=== PATIENT | male | born 1945 | race Caucasian/White ===

== ENCOUNTER → 2016-05-22 | Outpatient (CLI) | payer MEDICARE, OTHER ==
[2016-05-22 08:59] LABS: Basophils # (auto) 0 uL; Basophils % (auto) 0.4 % (0.0-2.0); Eosinophils # (auto) 0.1 uL; Eosinophils % (auto) 1.6 % (0.0-7.0); Hematocrit 46.7 % (41.0-53.0); Hemoglobin 15.4 g/dL (13.5-17.5); Lymphocytes # (auto) 2.1 uL; Lymphocytes % (auto) 27.8 % (10.0-50.0); Mean Corpuscular Hemoglobin 28.4 pg (28.0-32.0); Mean Corpuscular Hgb Conc. 32.9 g/dL (32.0-36.0); Mean Corpuscular Volume 86.2 fL (80.0-100.0); Mean Platelet Volume 8.9 fL (7.4-10.4); Monocytes # (auto) 0.6 uL; Monocytes % (auto) 8.2 % (0.0-12.0); Neutrophils # (auto) 4.6 uL; Platelet Count (auto) 237 10^3/uL (140-450); Red Cell Distribution Width 16.1 % (11.6-16.0); White Blood Cell 7.4 10^3/uL (4.4-10.8)
[2016-05-22 09:31] LABS: Urine Bilirubin Negative (Negative); Urine Blood Negative /uL (Negative); Urine Color Yellow (Yellow); Urine Ketone TRACE (Negative); Urine Nitrite Negative (Negative); Urine RBC <1 /hpf (0 - 3); Urine Urobilinogen Normal (Negative)
[2016-05-22 09:36] LABS: Urine Glucose 4+ mg/dL (Normal)
[2016-05-22 09:41] LABS: BUN/Creatinine Ratio 20.9; Bilirubin, Total 1.1 mg/dL (0.2-1.0); Calcium 8.8 mg/dL (8.5-10.1); Potassium 4.3 mmol/L (3.5-5.1); Total Protein 7.9 g/dL (6.4-8.2)
== END | disposition home or self-care (01) ==
LOC: LAB 07:12
PROVIDERS: ATTEND Internal Medicine
DX: E11.9 Type 2 diabetes mellitus without complications (principal); I10 Essential (primary) hypertension; E03.9 Hypothyroidism, unspecified
CPT/HCPCS: 36415; 80053; 80061; 81001; 82306; 83036; 84153; 84443; 85025

== ENCOUNTER → 2016-09-13 | Outpatient (CLI) | payer MEDICARE, OTHER ==
[2016-09-13 08:34] LABS: Urine Bilirubin Negative (Negative); Urine Blood Negative /uL (Negative); Urine Color Yellow (Yellow); Urine Ketone Negative (Negative); Urine Nitrite Negative (Negative); Urine RBC 1 /hpf (0 - 3); Urine Squamous Epithelial Cell FEW /hpf (<5); Urine Urobilinogen Normal (Negative)
[2016-09-13 08:35] LABS: Urine Glucose 4+ mg/dL (Normal)
[2016-09-13 09:03] LABS: Albumin 3.5 g/dL (3.4-5.0); BUN/Creatinine Ratio 18.1; Calcium 8.5 mg/dL (8.5-10.1); Potassium 4.2 mmol/L (3.5-5.1); Total Protein 7.3 g/dL (6.4-8.2)
== END | disposition home or self-care (01) ==
LOC: LAB 06:38
PROVIDERS: ATTEND Internal Medicine
DX: Z00.00 Encounter for general adult medical examination without abnormal findings (principal); I10 Essential (primary) hypertension; E78.2 Mixed hyperlipidemia; E11.9 Type 2 diabetes mellitus without complications
CPT/HCPCS: 36415; 80053; 80061; 81001; 83036; 84443

== ENCOUNTER → 2016-12-04 | Outpatient (CLI) | payer MEDICARE, OTHER ==
[2016-12-04 10:40] LABS: Urine Bilirubin Negative (Negative); Urine Blood Negative /uL (Negative); Urine Color Yellow (Yellow); Urine Glucose 4+ mg/dL (Normal); Urine Hyaline Cast FEW /lpf (0 - 2); Urine Ketone Negative (Negative); Urine Nitrite Negative (Negative); Urine RBC <1 /hpf (0 - 3); Urine Squamous Epithelial Cell FEW /hpf (<5); Urine Urobilinogen Normal (Negative)
[2016-12-04 10:46] LABS: Albumin 3.9 g/dL (3.4-5.0); BUN/Creatinine Ratio 17.5; Bilirubin, Total 1.4 mg/dL (0.2-1.0); Calcium 8.8 mg/dL (8.5-10.1); Potassium 4.2 mmol/L (3.5-5.1); Total Protein 7.8 g/dL (6.4-8.2)
== END | disposition home or self-care (01) ==
LOC: LAB 07:45
PROVIDERS: ATTEND Internal Medicine
DX: I10 Essential (primary) hypertension (principal); E78.2 Mixed hyperlipidemia; E03.9 Hypothyroidism, unspecified; N39.0 Urinary tract infection, site not specified
CPT/HCPCS: 36415; 80053; 80061; 81001; 82043; 84443

== ENCOUNTER 2017-02-27 12:55 | Inpatient (IN) | payer MEDICARE, OTHER ==
[~2017-02-27] VITALS: Ht 180.3 cm; Wt 123.7 kg
[2017-02-27 14:19] LABS: Basophils # (auto) 0 uL; Basophils % (auto) 0.5 % (0.0-2.0); Eosinophils # (auto) 0.1 uL; Hematocrit 47.4 % (41.0-53.0); Hemoglobin 15.6 g/dL (13.5-17.5); Lymphocytes # (auto) 1.9 uL; Lymphocytes % (auto) 20.2 % (10.0-50.0); Mean Corpuscular Hemoglobin 29.7 pg (28.0-32.0); Mean Corpuscular Hgb Conc. 32.9 g/dL (32.0-36.0); Mean Corpuscular Volume 90.2 fL (80.0-100.0); Monocytes # (auto) 0.7 uL; Monocytes % (auto) 7.6 % (0.0-12.0); Neutrophils # (auto) 6.7 uL; Neutrophils % (auto) 70.7 % (37.0-80.0); Nucleated Red Blood Cells % 0.2 %; Platelet Count (auto) 223 10^3/uL (140-450); Red Blood Cells 5.26 10^6/uL (4.5-5.90); Red Cell Distribution Width 16.5 % (11.8-14.3); White Blood Cell 9.4 10^3/uL (4.4-10.8)
[2017-02-27 14:35] LABS: INR 0.97 (0.9-1.15); Partial Thromboplastin Time 28.2 sec (22.64-33.71); Prothrombin Time 10.6 sec (9.37-12.3)
[2017-02-27 15:07] LABS: BUN/Creatinine Ratio 18.1; Calcium 9.2 mg/dL (8.5-10.1)
[2017-02-27 15:08] LABS: Albumin 3.8 g/dL (3.4-5.0); Total Protein 7.8 g/dL (6.4-8.2)
[2017-02-27] MEDS ORDERED: TEMAZEPAM 15 MG CAP PO PRN (21:00)
[2017-02-27] MEDS ORDERED: ACETAMINOPHEN 325 MG TAB PO PRN (21:00)
[2017-02-27] MEDS ORDERED: DEXTROSE (50%) 50ML SYRG IV PRN (21:00)
[2017-02-27] MEDS ORDERED: ONDANSETRON HCL 4 MG/2 ML VIAL IV PRN (21:00)
[2017-02-27] MEDS: SODIUM CHLORIDE 0.9% 1,000 ML IV SCH (23:58)
[2017-02-27] MEDS: FAMOTIDINE 20 MG TAB PO SCH (23:59)
[2017-02-27] MEDS: CLINDAMYCIN 600MG IV 50 ML IV SCH (23:59)
[2017-02-28] MEDS: ACCU-CHEK COMFORT CURVE STRIP VI SCH ×4 (00:21→18:21)
[2017-02-28] MEDS: CLINDAMYCIN 600MG IV 50 ML IV SCH ×3 (04:59→21:55)
[2017-02-28] MEDS: InsuLIN REG 1unit/0.01ml Soln (100units/ml) SC SCH ×4 (06:00→18:00)
[2017-02-28 06:29] VITALS: BP 122/49
[2017-02-28] MEDS ORDERED: LEVO125T7 PO (07:36)
[2017-02-28] MEDS ORDERED: PIO30T PO (07:36)
[2017-02-28] MEDS ORDERED: METF500T PO (07:36)
[2017-02-28 08:00] VITALS: BP 123/49
[2017-02-28] MEDS: SODIUM CHLORIDE 0.9% 1,000 ML IV SCH ×2 (09:24→21:58)
[2017-02-28] MEDS: FAMOTIDINE 20 MG TAB PO SCH ×2 (11:17→21:55)
[2017-02-28] MEDS ORDERED: PIOGLITAZONE HYDROCHLORIDE 30 MG TAB PO ONE (11:30)
[2017-02-28] MEDS ORDERED: LEVOFLOXACIN 500MG 100 ML IV ONE (11:45)
[2017-02-28] MEDS ORDERED: LEVOTHYROXINE SODIUM 25 MCG TAB PO ONE (11:45)
[2017-02-28] MEDS ORDERED: LEVOTHYROXINE SODIUM 100 MCG TAB PO ONE (11:45)
[2017-02-28 12:00] VITALS: BP 121/71
[2017-02-28 17:15] VITALS: BP 138/75
[2017-02-28 20:00] VITALS: BP 115/72
[2017-02-28 22:05] VITALS: BP 115/72
[2017-03-01] VITALS (7 sets, daily range): BP systolic 120–137; BP diastolic 71–77
[2017-03-01] MEDS: ACCU-CHEK COMFORT CURVE STRIP VI SCH ×4 (00:22→18:07)
[2017-03-01] MEDS: InsuLIN REG 1unit/0.01ml Soln (100units/ml) SC SCH ×4 (06:00→18:00)
[2017-03-01] MEDS: CLINDAMYCIN 600MG IV 50 ML IV SCH ×3 (06:15→22:04)
[2017-03-01 06:24] LABS: Basophils # (auto) 0 uL; Basophils % (auto) 0.5 % (0.0-2.0); Eosinophils # (auto) 0.2 uL; Eosinophils % (auto) 2.3 % (0.0-7.0); Hematocrit 40.4 % (41.0-53.0); Hemoglobin 13.5 g/dL (13.5-17.5); Lymphocytes # (auto) 2.2 uL; Lymphocytes % (auto) 33.5 % (10.0-50.0); Mean Corpuscular Hemoglobin 29.3 pg (28.0-32.0); Mean Corpuscular Hgb Conc. 33.4 g/dL (32.0-36.0); Mean Corpuscular Volume 87.6 fL (80.0-100.0); Monocytes # (auto) 0.6 uL; Monocytes % (auto) 9.1 % (0.0-12.0); Neutrophils # (auto) 3.5 uL; Neutrophils % (auto) 54.6 % (37.0-80.0); Platelet Count (auto) 180 10^3/uL (140-450); Red Blood Cells 4.62 10^6/uL (4.5-5.90); Red Cell Distribution Width 16.2 % (11.8-14.3); White Blood Cell 6.5 10^3/uL (4.4-10.8)
[2017-03-01 06:28] LABS: Albumin 3.2 g/dL (3.4-5.0); BUN/Creatinine Ratio 24.6; Bilirubin, Total 1.3 mg/dL (0.2-1.0); Calcium 8.7 mg/dL (8.5-10.1); Total Protein 6.6 g/dL (6.4-8.2)
[2017-03-01] MEDS: LEVOTHYROXINE SODIUM 100 MCG TAB PO SCH (06:38)
[2017-03-01] MEDS: FAMOTIDINE 20 MG TAB PO SCH ×2 (10:47→22:04)
[2017-03-01] MEDS: SODIUM CHLORIDE 0.9% 1,000 ML IV SCH (10:48)
[2017-03-01] MEDS: LEVOTHYROXINE SODIUM 25 MCG TAB PO SCH (10:48)
[2017-03-01] MEDS: LEVOFLOXACIN 500MG 100 ML IV SCH (10:49)
[2017-03-01] MEDS: PIOGLITAZONE HYDROCHLORIDE 30 MG TAB PO SCH ×2 (10:50→11:00)
[2017-03-01] MEDS ORDERED: MULTIPLE VITAMINS W/ MINERALS TAB PO ONE (15:00)
[2017-03-01] MEDS: ASCORBIC ACID 500 MG TAB PO SCH (22:04)
[2017-03-02] VITALS (7 sets, daily range): BP systolic 118–151; BP diastolic 67–100
[2017-03-02] MEDS: SODIUM CHLORIDE 0.9% 1,000 ML IV SCH ×2 (00:23→10:33)
[2017-03-02] MEDS: ACCU-CHEK COMFORT CURVE STRIP VI SCH ×4 (00:23→18:05)
[2017-03-02] MEDS: InsuLIN REG 1unit/0.01ml Soln (100units/ml) SC SCH ×4 (06:00→18:00)
[2017-03-02] MEDS: CLINDAMYCIN 600MG IV 50 ML IV SCH ×3 (06:10→21:41)
[2017-03-02] MEDS: LEVOTHYROXINE SODIUM 100 MCG TAB PO SCH (06:10)
[2017-03-02] MEDS: LEVOTHYROXINE SODIUM 25 MCG TAB PO SCH (06:11)
[2017-03-02 09:49] LABS: Urine Bacteria NONE SEEN /hpf (None Seen); Urine Blood 2+ /uL (Negative); Urine Hyaline Cast FEW /lpf (0 - 2); Urine Mucus FEW (None Seen); Urine Specific Gravity 1.012 (1.001-1.035); Urine WBC 1 /hpf (0 - 3)
[2017-03-02] MEDS: LEVOFLOXACIN 500MG 100 ML IV SCH (10:00)
[2017-03-02] MEDS: PIOGLITAZONE HYDROCHLORIDE 30 MG TAB PO SCH (10:00)
[2017-03-02] MEDS: MULTIPLE VITAMINS W/ MINERALS TAB PO SCH (10:00)
[2017-03-02] MEDS: ASCORBIC ACID 500 MG TAB PO SCH ×2 (10:00→21:41)
[2017-03-02] MEDS: FAMOTIDINE 20 MG TAB PO SCH ×2 (10:01→21:41)
[2017-03-02] MEDS ORDERED: ceFAZolin 1GM VL ONE (12:34)
[2017-03-02] MEDS ORDERED: BUPIVACAINE 0.75% INJ 10ML MPV SDV IJ ONE (12:35)
[2017-03-02] MEDS ORDERED: MIDAZOLAM HCL 1MG/1ML-2 ML VIAL ONE (12:46)
[2017-03-02] MEDS ORDERED: fentaNYL CITRATE 100 MCG/2 ML VL ONE (12:46)
[2017-03-02] MEDS ORDERED: PROPOFOL 10 MG/ML 20 ML IV ONE (12:48)
[2017-03-02] MEDS ORDERED: BACITRACIN TOP OINT 1 UD PKG TOP ONE (13:17)
[2017-03-02] MEDS ORDERED: NEOMYCIN-BACITRACIN-POLYM 15GM TOP OINT TOP ONE (13:17)
[2017-03-02] MEDS ORDERED: HYDROmorphone HCL 2 MG/ML VL IV PRN (13:30)
[2017-03-02] MEDS ORDERED: hydrALAZINE HCL 20 MG/ML VL IV PRN (13:30)
[2017-03-02] MEDS ORDERED: ePHEDrine SULFATE 50 MG/ML AMP IV PRN (13:30)
[2017-03-02] MEDS ORDERED: ONDANSETRON HCL 4 MG/2 ML VIAL IV ONE (13:30)
[2017-03-02] MEDS: HYDROcodone-ACET 5/325MG TAB PO PRN (21:41)
[2017-03-03] VITALS (7 sets, daily range): BP systolic 124–159; BP diastolic 60–85
[2017-03-03] MEDS: SODIUM CHLORIDE 0.9% 1,000 ML IV SCH ×2 (00:04→12:43)
[2017-03-03] MEDS: ACCU-CHEK COMFORT CURVE STRIP VI SCH ×4 (00:04→17:55)
[2017-03-03] MEDS: HYDROcodone-ACET 5/325MG TAB PO PRN ×4 (05:34→21:34)
[2017-03-03] MEDS: InsuLIN REG 1unit/0.01ml Soln (100units/ml) SC SCH ×4 (05:37→17:56)
[2017-03-03] MEDS: LEVOTHYROXINE SODIUM 25 MCG TAB PO SCH (06:25)
[2017-03-03] MEDS: CLINDAMYCIN 600MG IV 50 ML IV SCH ×3 (06:25→21:33)
[2017-03-03] MEDS: LEVOTHYROXINE SODIUM 100 MCG TAB PO SCH (06:25)
[2017-03-03] MEDS: FAMOTIDINE 20 MG TAB PO SCH ×2 (10:01→21:34)
[2017-03-03] MEDS: LEVOFLOXACIN 500MG 100 ML IV SCH (10:02)
[2017-03-03] MEDS: ASCORBIC ACID 500 MG TAB PO SCH ×2 (10:02→21:34)
[2017-03-03] MEDS: MULTIPLE VITAMINS W/ MINERALS TAB PO SCH (10:02)
[2017-03-03] MEDS: PIOGLITAZONE HYDROCHLORIDE 30 MG TAB PO SCH (10:18)
[2017-03-03] MEDS ORDERED: EMPA1TAB (10:28)
[2017-03-03] MEDS ORDERED: METF-370 (10:28)
[2017-03-03] MEDS ORDERED: PIOGLITAZONE HYDROCHLORIDE 30 MG TAB PO SCH (21:00)
[2017-03-04] MEDS: ACCU-CHEK COMFORT CURVE STRIP VI SCH ×3 (00:28→12:18)
[2017-03-04] MEDS: SODIUM CHLORIDE 0.9% 1,000 ML IV SCH (00:54)
[2017-03-04 05:12] VITALS: BP 116/78
[2017-03-04] MEDS: InsuLIN REG 1unit/0.01ml Soln (100units/ml) SC SCH ×3 (06:00→12:00)
[2017-03-04] MEDS: CLINDAMYCIN 600MG IV 50 ML IV SCH (06:21)
[2017-03-04] MEDS: LEVOTHYROXINE SODIUM 25 MCG TAB PO SCH (06:24)
[2017-03-04] MEDS: LEVOTHYROXINE SODIUM 100 MCG TAB PO SCH (06:25)
[2017-03-04] MEDS: HYDROcodone-ACET 5/325MG TAB PO PRN (06:31)
[2017-03-04] MEDS ORDERED: JARDIANCE 10 MG PO SCH (07:00)
[2017-03-04 09:00] VITALS: BP 141/74
[2017-03-04] MEDS: FAMOTIDINE 20 MG TAB PO SCH (09:52)
[2017-03-04] MEDS: MULTIPLE VITAMINS W/ MINERALS TAB PO SCH (09:52)
[2017-03-04] MEDS: LEVOFLOXACIN 500MG 100 ML IV SCH (09:52)
[2017-03-04] MEDS: ASCORBIC ACID 500 MG TAB PO SCH (09:53)
== END 2017-03-04 13:32 | disposition short-term general hospital (02) | DRG 617 ==
LOC: ER 13:02 → OVERFLOW 13:03 → WEST WING 02-28 02:57
PROVIDERS: ADMIT Nurse Practitioner; ATTEND Family Medicine
PROC: 0QBN0ZZ Excision of Right Metatarsal, Open Approach (ICD-10-PCS; 2017-03-02)
PROC: 0Y6R0Z0 Detachment at Right 2nd Toe, Complete, Open Approach (ICD-10-PCS; principal; 2017-03-02 12:42)
DX: E11.69 Type 2 diabetes mellitus with other specified complication (principal); M86.8X7 Other osteomyelitis, ankle and foot; E11.21 Type 2 diabetes mellitus with diabetic nephropathy; L03.115 Cellulitis of right lower limb; E11.621 Type 2 diabetes mellitus with foot ulcer; L97.519 Non-pressure chronic ulcer of other part of right foot with unspecified severity; E03.9 Hypothyroidism, unspecified; N18.2 Chronic kidney disease, stage 2 (mild); E11.22 Type 2 diabetes mellitus with diabetic chronic kidney disease; L97.514 Non-pressure chronic ulcer of other part of right foot with necrosis of bone; Z82.49 Family history of ischemic heart disease and other diseases of the circulatory system; Z83.3 Family history of diabetes mellitus; Z88.1 Allergy status to other antibiotic agents; Z89.421 Acquired absence of other right toe(s); Z79.899 Other long term (current) drug therapy; Z71.3 Dietary counseling and surveillance
CPT/HCPCS: 36415; 71045; 73718; 80053; 81001; 82962; 83036; 85025; 85610; 85730; 86850; 86900; 86901; 87040; 87070; 87075; 87076; 87205; J0690; J1815; J1956; J2250; J2704; J3490